=== PATIENT | male | born 1970 | race Two or more races ===

== ENCOUNTER 2019-07-27 12:14 | Emergency (ER) | payer OTHER ==
[~2019-07-27] VITALS: Ht 172.7 cm; Wt 79.4 kg
[2019-07-27 12:14] VITALS: BP 126/78
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
[2019-07-27] MEDS ORDERED: Methocarbamol 750mg tab ORAL ONE (13:00)
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
[2019-07-27] MEDS ORDERED: IBUPROFEN600 MG ORAL (13:41)
[2019-07-27] MEDS ORDERED: ROBAXIN-750750 MG PO (13:41)
[2019-07-27 14:14] VITALS: BP 123/79
[2019-07-27 14:15] VITALS: BP 123/79
--- NOTE | 2019-07-27 14:15 | NUR ---
ER DISCHARGE NOTE: Patient is cleared to be discharged per ERMD, pt is aox4, on room air, with stable vital signs. pt was given dc and prescription instructions, pt was able to verbalize understanding, pt id band removed. pt is able to ambulate with steady gait. pt took all belongings.
--- NOTE | 2019-07-28 10:46 | Cardiology Report ---
APPROVED REPORT EKG Measurement Heart [id number] Normal sinus rhythm Nonspecific ST abnormality Abnormal ECG
== END 2019-07-27 14:15 | disposition home or self-care (01) ==
LOC: EDBD 12:14 → EMR 13:24
DX: M79.601 Pain in right arm (principal); R00.2 Palpitations; E11.9 Type 2 diabetes mellitus without complications; V43.62XA Car passenger injured in collision with other type car in traffic accident, initial encounter; Y92.411 Interstate highway as the place of occurrence of the external cause
CPT/HCPCS: 93005; Z7502; 99283